=== PATIENT | female | born 1965 | race African-American/Black ===

== ENCOUNTER 2017-09-03 12:27 | Emergency (ER) | payer OTHER, SELFPAY ==
[2017-09-03] MEDS ORDERED: Ketorolac Tromethamine 30 MG/ML VIAL ONE (13:39)
--- NOTE | 2017-09-03 14:20 | RAD ---
RIGHT SHOULDER 3 VIEWS: Date: 09/03/17 HISTORY: Shoulder injury. FINDINGS: There are no signs of fracture or dislocation. There appears to be a small subacromial spur. IMPRESSION: No evidence of fracture. POS: [facility]
== END 2017-09-03 14:04 | disposition home or self-care (01) ==
LOC: ERS 12:27
DX: M25.511 Pain in right shoulder (principal); I10 Essential (primary) hypertension; F17.200 Nicotine dependence, unspecified, uncomplicated; Z79.899 Other long term (current) drug therapy; W18.30XA Fall on same level, unspecified, initial encounter
CPT/HCPCS: 96372; 99406; J1885

== ENCOUNTER 2018-10-12 09:23 | Emergency (ER) | payer SELFPAY ==
--- NOTE | 2018-10-12 10:59 | RAD ---
RIGHT WRIST 3 VIEWS: HISTORY: A 53-year-old female with a history of right wrist pain for 3 weeks following an injury. FINDINGS: There is some heterogeneous bone demineralization. No evidence for acute fracture or dislocation. IMPRESSION: Heterogeneous bone demineralization of the wrist without acute fracture or dislocation. If patient has persistent nonresolving wrist pain, consideration for a nonemergent followup MRI study might be of benefit. POS: [facility]
== END 2018-10-12 11:13 | disposition home or self-care (01) ==
LOC: ERS 09:23
DX: S63.501A Unspecified sprain of right wrist, initial encounter (principal); I10 Essential (primary) hypertension; F17.210 Nicotine dependence, cigarettes, uncomplicated; X50.1XXA Overexertion from prolonged static or awkward postures, initial encounter

== ENCOUNTER 2018-10-28 10:23 | Emergency (ER) | payer OTHER, SELFPAY ==
--- NOTE | 2018-10-28 11:22 | RAD ---
RIGHT WRIST 3 VIEWS: INDICATION: Wrist pain. COMPARISON: 10/12/2018. FINDINGS: Carpals appear normally aligned. Small cystic lesion in the lunate again noted. No fracture or acut e abnormality. IMPRESSION: No acute finding. POS: [facility]
== END 2018-10-28 11:57 | disposition home or self-care (01) ==
LOC: ERS 10:23
DX: M25.531 Pain in right wrist (principal); I10 Essential (primary) hypertension; F17.200 Nicotine dependence, unspecified, uncomplicated

== ENCOUNTER 2024-04-30 06:16 | Day surgery (SDC) | payer OTHER ==
[2024-04-25 12:33] VITALS: BMI 26.9
[~2024-04-30 06:16] MED LIST: EPINEPHrine 0.3 MG in Ophthalmic Irrigation Solution 500 ML IRR SCH
[2024-04-30] MEDS ORDERED: fentaNYL PF 100 MCG/2 ML SYRINGE ONE (08:03)
[2024-04-30] MEDS ORDERED: Midazolam HCl 2 mg/2 ml Vial ONE (08:03)
[2024-04-30] MEDS ORDERED: Lidocaine 1% PF 5 ML VIAL ONE (08:29)
[2024-04-30] MEDS ORDERED: PROPOFOL 200 MG/20 ML VIAL ONE (08:29)
[2024-04-30] MEDS ORDERED: Indocyanine Green 25 MG/10 ML VIAL ONE (08:29)
[2024-04-30] MEDS ORDERED: Lidocaine 4% PF 5 ML AMP ONE (08:29)
[2024-04-30] MEDS ORDERED: Bupivacaine 0.75% 10 ML VIAL ONE (08:29)
[2024-04-30] MEDS ORDERED: CEFAZOLIN 1 GM VIAL ONE (08:29)
[2024-04-30] MEDS ORDERED: Triamcinolone 40 MG/ML VIAL ONE (08:29)
== END 2024-04-30 09:38 | disposition home or self-care (01) ==
LOC: SDC 06:16
PROVIDERS: ATTEND Ophthalmology Retina Specialist
PROC: 08T43ZZ Resection of Right Vitreous, Percutaneous Approach (ICD-10-PCS; principal; 2024-04-30)
DX: H35.341 Macular cyst, hole, or pseudohole, right eye (principal)
CPT/HCPCS: 67025; J0171; J0690; J2250; J2704; J3301; J3490